=== PATIENT | female | born 1980 | race African-American/Black ===

== ENCOUNTER 2022-04-19 11:01 | Emergency (ER) | payer BC, SELFPAY ==
[2022-04-19 11:22] VITALS: BP 199/135; PULSE 86; RESP 14; TEMP 36.5; O2SAT 100
--- NOTE | 2022-04-19 11:28 | ECG_ITS ---
Measurements Intervals [place] Rate: 74 P: 35 IA: 153 QRS: 21 QRSD: 82 T: 14 QT: 407 QTc: 452 Interpretive Statements SINUS RHYTHM DELAYED PRECORDIAL R/S TRANSITION BORDERLINE ECG NO PREVIOUS ECG AVAILABLE FOR COMPARISON Electronically Signed On 04-19-2022 11:49:47 MEDICAL ADMINISTRATIVE TECHNICIAN by Carlos Manuel Urrutia D.O.
[2022-04-19 12:13] LABS: Basophils Percent Auto 0.4 % (0.2-1.2); Eosinophils Absolute Auto 0.1 K/mm3 (0-0.3); Eosinophils Percent Auto 2.2 % (0-4.4); Hematocrit 38.2 % (37.0-47.0); Hemoglobin 12.3 g/dL (12.0-15.0); Immature Granulocyte Absolute 0.01 K/mm3 (0.00-0.031); Immature Granulocyte Percent A 0.2 % (0-0.5); Lymphocytes Absolute Auto 1.59 K/mm3 (0.9-3.2); Lymphocytes Percent Auto 32.1 % (18.3-44.2); Mean Corpuscular HGB Conc 32.2 g/dl (32-36); Mean Corpuscular Hemoglobin 27.3 pg (26-34); Mean Corpuscular Volume 84.9 fl (80-100); Mean Platelet Volume 11.1 fl (7.4-10.4); Monocytes Absolute Auto 0.5 K/mm3 (0.1-0.6); Monocytes Percent Auto 9.7 % (2.6-8.5); Neutrophils Absolute Auto 2.8 K/mm3 (1.3-6.7); Neutrophils Percent Auto 55.4 % (45.5-73.1); Platelet Count Result 384 k/mm3 (150-375); Red Cell Distribution Width 15.9 % (11.5-14.5)
[2022-04-19 12:24] LABS: Alanine Aminotransferase 17 U/L (6-35); Albumin Level 4.5 g/dL (3.5-5.1); Alkaline Phosphatase 62 U/L (38-126); Anion Gap 6 mmol/L (8-16); Aspartate Amino Transferase 22 U/L (14-36); Bilirubin,Total 0.5 mg/dL (0.2-1.3); Blood Urea Nitrogen 15 mg/dL (7-17); Calcium 8.9 mg/dL (8.4-10.2); Carbon Dioxide 25 mmol/L (22-30); Chloride 103 mmol/L (98-107); Estimated CRCL calculation 72 ml/min; Estimated Glomerular Filt Rate 55; Glucose 111 mg/dL (65-110); Sodium 134 mmol/L (137-145)
[2022-04-19 12:26] LABS: Prothrombin Time 13.2 Seconds (11.1-14.7)
[2022-04-19 12:27] VITALS: BP 195/140; PULSE 75; RESP 15; O2SAT 100
[2022-04-19 12:27] LABS: Partial Thromboplastin Time 29.8 SECONDS (22.3-36.8)
--- NOTE | 2022-04-19 13:06 | ED.GIBLEED ---
HPI - GI Bleed General Chief complaint: GI Bleed Stated complaint: rectal bleeding Time Seen by Provider: 04/19/22 12:44 History of Present Illness HPI Narrative: Patient is a 41-year-old female with a history of hypertension, hyperlipidemia presenting with rectal bleeding. Patient states over the last 3 days she has had intermittent rectal bleeding when she uses the bathroom. States that it is bright red and painless. States that she had painful hemorrhoids many years ago when she was . States that she will sometimes be constipated but does not feel like she has been more than normal. She denies hematuria or vaginal bleeding. No lightheadedness, chest pain, shortness of breath, abdominal pain, vomiting. States that she forgot to take her blood pressure medicine this morning as she was on her way here. Review of Systems Review of Systems: All systems reviewed & are unremarkable except as noted in HPI and below Exam Narrative: GENERAL: Well-appearing, well-nourished, and in no acute distress. HEAD: Normocephalic, atraumatic. EYES: PERRLA and EOMI. ENT: Nares clear, no rhinorrhea or epistaxis. Mucous membranes moist. NECK: Supple. CHEST: Clear to auscultation. No respiratory distress. HEART: Regular rate and rhythm. No murmur heard ABDOMEN: Soft, nontender, nondistended EXTREMITIES: Normal range of motion. No edema. SKIN: Warm, dry, no rash. NEURO: No focal deficits. Alert and oriented x3. PSYCH: Normal mood and affect. Course Vital Signs Vital signs: Vital Signs Temperature 97.7 F 04/19/22 11:22 Pulse Rate 86 04/19/22 11:22 Respiratory Rate 14 04/19/22 11:22 Blood Pressure 199/135 H 04/19/22 11:22 Pulse Oximetry 100 04/19/22 11:22 Oxygen Delivery Room Air 04/19/22 11:22 Temperature 97.7 F 04/19/22 11:22 Pulse Rate 80 04/19/22 14:00 Respiratory Rate 16 04/19/22 14:00 Blood Pressure 194/141 H 04/19/22 14:00 Pulse Oximetry 98 04/19/22 14:00 Oxygen Delivery Room Air 04/19/22 11:22 MDM - GI Bleed MDM Narrative Medical decision making narrative: Patient is a 41-year-old female presenting with rectal bleeding. Patient is hypertensive, otherwise vitals are within normal limits. Patient states that she did forget to take her high blood pressure medication this morning. Blood work is unremarkable. Hemoglobin is stable at 12.3. Rectal exam is Hemoccult negative. Stool was light brown. Multiple rectal skin tags. No obvious hemorrhoids but is very possible she has an internal one. Work-up is reassuring and feel she is safe for outpatient management. Advised that she follow-up closely with her PCP as well as GI. Appropriate return precautions were given. Patient voiced understanding and is agreeable with plan. Discharged in stable condition. Differential Diagnosis Differential diagnosis: Likely hemorrhoids, gastritis, Lower gastrointestinal hemorrhage, hematochezia and anal fissure Lab Data 04/19/22 11:56 04/19/22 11:56 Labs: Lab Results 04/19/22 04/19/22 04/19/22 Range/Units 11:56 11:56 11:56 WBC 5.0 (4.5-10.0) K/mm3 RBC 4.50 (4.2-5.4) M/mm3 Hgb 12.3 (12.0-15.0) g/dL Hct 38.2 (37.0-47.0) % MCV 84.9 (80-100) fl MCH 27.3 (26-34) pg MCHC 32.2 (32-36) g/dl RDW 15.9 H (11.5-14.5) % Plt Count 384 H (150-375) k/mm3 MPV 11.1 H (7.4-10.4) fl Immature Gran % (Auto) 0.2 (0-0.5) % Neut % (Auto) 55.4 (45.5-73.1) % Lymph % (Auto) 32.1 (18.3-44.2) % [place] % (Auto) 9.7 H (2.6-8.5) % Eos % (Auto) 2.2 (0-4.4) % Baso % (Auto) 0.4 (0.2-1.2) % Lymph # (Auto) 1.59 (0.9-3.2) K/mm3 [place] # (Auto) 0.5 (0.1-0.6) K/mm3 Eos # (Auto) 0.1 (0-0.3) K/mm3 Baso # (Auto) 0.0 (0.0-0.1) K/mm3 Abs Immat Gran (auto) 0.01 (0.00-0.031) K/mm3 Absolute Neuts (auto) 2.8 (1.3-6.7) K/mm3 Absolute Nucleated RBC 0.0 (0.0-0.012) K/mm3 Nucleated RBC % 0.0 (0.0-0.
[2022-04-19 14:00] VITALS: BP 194/141; PULSE 80; RESP 16; O2SAT 98
== END 2022-04-19 14:02 | disposition home or self-care (01) ==
PROVIDERS: Emergency Medicine; Emergency Provider Emergency Medicine
DX: K62.5 Hemorrhage of anus and rectum (principal); I10 Essential (primary) hypertension; E78.5 Hyperlipidemia, unspecified; R94.31 Abnormal electrocardiogram [ECG] [EKG]
CPT/HCPCS: 36415; 80053; 85025; 85610; 85730; 86850; 86880; 86900; 86901; 86902; 93005; 99283